=== PATIENT | female | born 1995 | race Caucasian/White ===

== ENCOUNTER 2025-01-16 08:50 | Day surgery (SDC) | payer MEDICAID, SELFPAY ==
[2025-01-16] VITALS (9 sets, daily range): BP systolic 99–147; BP diastolic 61–105; PULSE 82–107; RESP 16–22; TEMP 36.2–36.6; O2SAT 95–100; BMI 44.7
[2025-01-16] MEDS: LACTATED RINGERS 1000ML 1,000 ML 75 ML IV (09:29)
--- NOTE | 2025-01-16 09:33 | P.PNANES_ITS ---
[facility] Disclaimer: The information contained in this section may have been updated after the patient was seen, as this information can be updated by other users. Medical History (Updated 01/15/25 @ 14:26 by Melanie Price RN) Urinary tract infection Seizure disorder Eczema Sleep apnea Surgical History (Updated 01/15/25 @ 14:26 by Melanie Price RN) History of dental surgery H/O brain surgery S/P placement of VNS (vagus nerve stimulation) device Family History (Updated 01/15/25 @ 14:26 by Melanie Price RN) Other Family history of cancer Family history of diabetes mellitus type II Family history of myocardial infarction Social History (Updated 01/15/25 @ 14:27 by Melanie Price RN) Smoking Status: Never smoker alcohol intake: never substance use type: denies use current occupational status: disabled Travel in the last 8 weeks?: None [facility] Anesthesia Checklist Patient Identification Patient Identification: Arm Band Structural Data Admitted From: Home Planned Operative Procedure/s: Full Mouth Extraction Consent for Planned Operative Procedure(s) Verified: Yes Verified Documents: Surgical Consent and History and Physical NPO Status Verified Time NPO: 00:00 Additional verifications Anesthesia Reactions: No Hx Blood Transfusions: No Blood Transfusion Reaction: No Airway Assessment Mallampati Score:: Class II C-Spine Mobility Assessed: Yes TMJ Mobility Assessed: Yes Neurological Assessment Level of Consciousness: Awake, Alert and Follows Commands Anesthesia Plan Anesthesia Risk discussed: Yes Anesthesia Plan: Verified ASA Class: III Anesthesia Type: General
[2025-01-16 10:02] LABS: HCG Qualitative, Serum Negative (Negative)
[2025-01-16] MEDS: LIDOCAINE 1% W/EPI 1:100,000 20ML VIAL 20 ML (11:08)
--- NOTE | 2025-01-16 13:41 | EXP.ANES.I ---
[facility] Anesthesia Record Part I Anesthesia Record I Intake, IV Amount: 1,300 Hydration: Adequate Estimated blood loss (mL): 10 Urine output (mL): 0 Blood Products used (#): none Blood Pressure: 147/105 SaO2: 95 Pulse Rate: 104 Airway Patency: Patent Respiratory Rate: 22 Temperature: 97.1 F Patient is:: Stable Stable to PACU at:: 13:28
[2025-01-16] MEDS: MEPERIDINE 25MG/ML 1ML SYRINGE 12.5 MG IV (13:45)
[2025-01-16] MEDS: ONDANSETRON 4MG/2ML VIAL 4 MG IV (14:00)
--- NOTE | 2025-01-16 17:38 | HMH.ORALP ---
Operative Note Date of procedure: 01/16/25 Date of : [birth year] Pre-op Diagnosis:: Severe Dental Decay and Periodontal gum disease Post-op diagnosis:: same Procedure performed:: Full mouth x-rays, oral exam, four quads deep scale cleaning, Nine Fillings placed. Uppper Right and Lower Right Gingivectomies. Surgeon:: Pretty Harrison DMD Hydraulic Blocker(s):: Kiki Pace FIXED WING AIRCRAFT FLIGHT MECHANIC:: Other (Kel Raman) Anesthesia: GETA Estimated blood loss (mL): 10 Operative findings:: Threee teeth #14, #2, #3 surgically removed and disposed of. Operative note:: 29 year old female transported to the [facility]. today for dental care under general anesthesia in the operating room. An I.V. was started in the O.R. pre-holding room . Patient was transported per stretcher to the O.R. She was moved over to the O.R. table. Smooth and non complicated general anesthesia was induced per nasotracheal intubation. One single moist throat pack was placed. Full mouth digital x-rays taken and reviewed today. Patient was found to have severe dental decay and three teeth were in need of surgical extraction. #2, #3, and #14 had a buccal flap elevated and a #6 surgical bur on a surgical handpiece was used to remove mesial, buccal, and distal bone around #2, #3, and #14 so that the remaining decayed teeth could then be removed with elevators and forceps as needed. Closed flaps and extraction sites with 3-0 chromic gut sutures. Four quadrants of scaling and root planing was done using cavitron. Then, the upper right and lower right had gingivectomy done because the gigival tissue was so over grown with hyperplasia and the cavities were extending well below he tissue. A #15 blade was first used to trim the buccal gingival in the upper right and lower right quads, then a peter bur on the handpiece was used to smooth and scallop the tissue. The following cavities were prepped then filled using A-1 and A-2 flowable and packable filtek resin filling. #6-mdlf, #7-mdlf, #26-mdlf, #27-mdlf, #29-do, #30-MO, #4-DO, #5-MOB, #28-MOB. Etch, mendoza, and resin filling material used. The patient tolerated all surgical procedures well and there were no surgical complications. Due to anesthesia time there will need to be a second date scheduled in the O.R. to do more dental treatment for this patient. The throat was irrigated and suctioned free of any debri and the throat pack was removed. Following a non-complicated post op recovery this patient was discharged back to her home in the care of her mother who was present with her today. The mother stated she would be taking the patient back to her care home in [place] and staying there with her and that care home staff will also be there. Disposition: same day Specimens:: Teeth number 2,3,14 Complications:: none
--- NOTE | 2025-01-16 18:02 | P.PCN_ITS ---
Operative Note Date of procedure: 01/16/25 Date of : 89 Pre-op Diagnosis:: Severe dental decay and periodontal gum disease Post-op diagnosis:: same Procedure performed:: Full mouth xray, oral exam, four quads SRP, Nine Fillings, UR and LR gingivectomies Surgeon:: Pretty Harrison DMD Anesthesia: GETA Estimated blood loss (mL): 10 Operative note:: 29 year old female transported to the [facility]. today for dental care under general anesthesia in the operating room. An I.V. was started in the O.R. pre-holding room . Patient was transported per stretcher to the O.R. She was moved over to the O.R. table. Smooth and non complicated general ane sthesia was induced per nasotracheal intubation. One single moist throat pack was placed. Full mouth digital x-rays taken and reviewed today. Patient was found to have severe dental decay and three teeth were in need of surgical extraction. #2, #3, and #14 had a buccal flap elevated and a #6 surgical bur on a surgical handpiece was used to remove mesial, buccal, and distal bone around #2, #3, and #14 so that the remaining decayed teeth could then be removed with elevators and forceps as needed. Closed flaps and extraction sites with 3-0 chromic gut sutures. Four quadrants of scaling and root planing was done using cavitron. Then, the upper right and lower right had gingivectomy done because the gigival tissue was so over grown with hyperplasia and the cavities were extending well below he tissue. A #15 blade was first used to trim the buccal gingival in the upper right and lower right quads, then a peter bur on the handpiece was used to smooth and scallop the tissue. The following cavities were prepped then filled using A-1 and A-2 flowable and packable filtek resin filling. #6-mdlf, #7-mdlf, #26-mdlf, #27-mdlf, #29-do, #30-MO, #4-DO, #5-MOB, #28-MOB. Etch, mendoza, and resin filling material used. The patient tolerated all surgical procedures well and there were no surgical complications. Due to anesthesia time there will need to be a second date scheduled in the O.R. to do more dental treatment for this patient. The throat was irrigated and suctioned free of any debri and the throat pack was removed. Following a non-complicated post op recovery this patient was discharged back to her home in the care of her mother who was present with her today. The mother stated she would be taking the patient back to her nursing home in [place] and staying there with her and that nursing home staff will also be there. Disposition: same day Complications:: none
--- NOTE | 2025-01-17 10:25 | EXP.ANES.II ---
[facility] Anesthesia Record Part II Anesthesia Record Part II Discharge Time: 14:40 Destination: Surgical Day Care (OP Surgery) PACU nurse assessment reviewed?: Yes Patient Condition:: Good Anesthesia Complications:: None Swallowing reflex intact?: Yes Airway Patency: Patent Cyanosis?: No Blood Pressure: 122/76 SaO2: 99 Respiratory Rate: 18 Pulse Rate: 91 Temperature: 97.8 F Mental Status: Alert & Oriented Pain level:: 3 Nausea and/or vomitting:: None Intake, IV Amount: 0 Hydration: Adequate
[2025-01-17 10:26] VITALS: BP 122/76; PULSE 91; RESP 18; TEMP 36.6; O2SAT 99
== END 2025-01-16 14:40 | disposition home or self-care (01) ==
PROVIDERS: Nurse Anesthetist, Certified Registered; Visit Provider Dentist General Practice
PROC: (CPT 41820; principal; 2025-01-16 11:15)
PROC: (CPT 41820; 2025-01-16 11:15)
PROC: (CPT 41899; 2025-01-16 11:15)
PROC: (CPT 41820; 2025-01-16 11:15)
DX: K02.9 Dental caries, unspecified (principal); K05.6 Periodontal disease, unspecified; Z88.5 Allergy status to narcotic agent; Z88.6 Allergy status to analgesic agent; Z88.8 Allergy status to other drugs, medicaments and biological substances
CPT/HCPCS: 41820 ×2; D2335 ×4; D2392 ×3; D2393 ×2; D4341 ×4; D7210; 84703; J1100; J2003; J2004; J2175; J2250; J2405; J2704; J3010; J7120